=== PATIENT | male | born 1965 | race Caucasian/White ===

== ENCOUNTER 2018-05-15 10:17 | Emergency (ER) | payer SELFPAY ==
[~2018-05-15] VITALS: Ht 170.2 cm; Wt 77.1 kg
[2018-05-15] MEDS ORDERED: TDAP DIPH,PERTUSS,TET VAC/PF 0.5 ML DISP.SYRIN IM ONE ×2 (10:30)
[2018-05-15] MEDS ORDERED: LIDOCAINE HCL 1% 20 ML VIAL ONE (10:43)
[2018-05-15] MEDS ORDERED: LIDOCAINE HCL 1% 20 ML VIAL IJ ONE (11:00)
--- NOTE | 2018-05-15 11:07 | NUR ---
Pt out of ER for CT.
--- NOTE | 2018-05-15 11:30 | NUR ---
Pt back from MD ROWENA at the [facility] for suture.
[2018-05-15] MEDS ORDERED: NEOMY/BACITRA/POLYMYXIN B OINT UD PACKET TP ONE ×2 (11:43→12:00)
--- NOTE | 2018-05-15 11:50 | NUR ---
Spoke to hospital social service technician(Amira), per Pt request.
--- NOTE | 2018-05-15 12:03 | NUR ---
Amira at the [facility].
--- NOTE | 2018-05-15 12:17 | NUR ---
Pt provided all resources for homeeless per hospital policy. Patient discharged to home in stable conditon. Written and verbal after care instructions given. Patient verbalizes understanding of instructions. Pt left ER w/ steady gait.
[2018-05-15 12:19] VITALS: BP 125/88
--- NOTE | 2018-05-15 13:13 | NUR ---
11:50pm: SW consult request. SW arrived to the ED at 12:00pm, met with LORENA Cherry and Dr. Lerner and discussed patient's needs. SW then met with patient. Patient is a 52 year old male. Patient was sitting on the ED bed in his assigned ED room, and was receptive to meeting with this SW. Patient is alert and oriented x 4. Patient stated he has been homeless for the past 13 months, and has a tent with his belongings set up in the [facility] (did not disclose location) where he stated he wants to return to. Patient stated that he plans on returning back to [place] very soon. SW discussed fpc options and other homeless resources, such as places for meals, showers, health clinics, etc. Patient expressed agreement to receive information on the resources discussed, however stated that he wanted to return to his tent at this time. SW offered the option of waiting in the ED waiting room until the afternoon when patient would be provided with assistance to get transported to a fpc pick-up location, but patient declined the offer and stated he just wanted to leave and would walk back to his tent. Patient observed to be somewhat nervous, yet was pleasant and cooperative, asking to leave as soon as possible. Patient was offered a meal by LORENA Cherry, which patient ate. Patient was dressed in well kept jeans, a sweater, a joyce jacket, and tennis shoes. SW asked patient if he needed additional clothing, and patient declined and stated that he has more clothes in his tent. SW offered patient information on [employer], but patient stated that he has emergency Medi-tee and was planning on returning to [place] very soon. SW provided patient with the list of winter shelters, highlighting the pick-up location address and times ([address] , [place], [place] pick[place] times 5:15pm, 5:45pm, 6;15pm, 7:15pm, 8:15pm) for the [facility]. Patient expressed understanding and thanked DESMOND for this information. SW also provided patient with a copy of the [facility] Homeless Resource Directory which includes a list of locations and days/times for hot meals, showers, sack lunches, and food pantries throughout the [facility]. SW also provided patient with a list of mental health and health clinics throughout the [facility] that provided medical and mental health services for homeless patients. SW informed by LORENA Cherry that patient did not require any prescriptions at this time. Patient signed a Homeless Patient Waiver Form. Copies of all resources provided and a copy of the waiver form were filed in patient's ED file. Patient left on foot, steady gait, oriented x 4.
== END 2018-05-15 12:20 | disposition home or self-care (01) ==
LOC: ER 10:17
DX: S01.111A Laceration without foreign body of right eyelid and periocular area, initial encounter (principal); W01.198A Fall on same level from slipping, tripping and stumbling with subsequent striking against other object, initial encounter; Y93.89 Activity, other specified; Y92.89 Other specified places as the place of occurrence of the external cause; Y99.8 Other external cause status
CPT/HCPCS: 12013; 70450; 90471; 90715; 99284; J3490; A4217; A4663